=== PATIENT | male | born 1960 | race African-American/Black ===

== ENCOUNTER 2017-04-21 14:53 | Inpatient (IN) | payer OTHER ==
[2017-04-21 16:02] VITALS: BMI 27.0
[2017-04-21] MEDS ORDERED: MAGNESIUM CITRATE 300 ML BOTTLE PO PRN (17:24)
[2017-04-21] MEDS ORDERED: MAG HYDROX/AL HYDROX/SIMETH 30 ML UNIT-DOSE CUP PO PRN (17:24)
[2017-04-21] MEDS ORDERED: MENTHOL/PHENOL 1 EACH UD MM PRN (17:24)
[2017-04-21] MEDS ORDERED: MAGNESIUM HYDROX 2400MG/30ML ORAL SUSPENSION 30 ML CUP PO PRN (17:24)
[2017-04-21] MEDS ORDERED: guaiFENesin/D-METHORPHAN HB 10 ML UNIT-DOSE CUPS PO PRN (17:24)
[2017-04-21] MEDS ORDERED: LOPERAMIDE HCL 2 MG CAPSULE PO PRN (17:24)
[2017-04-21] MEDS ORDERED: P-EPHED 60MG/TRIPROLIDI 2.5MG TABLET PO PRN (17:24)
[2017-04-21] MEDS ORDERED: ACETAMINOPHEN 325 MG TABLET (FP) PO PRN (17:24)
[2017-04-21] MEDS ORDERED: IBUPROFEN 400 MG TABLET (FP) PO PRN (17:24)
--- NOTE | 2017-04-21 17:24 | HP ---
CIWA Score - CIWA Score Nausea/Vomitin-Mild Nausea/No Vomiting Muscle Tremors: 4-Moderate,w/Arms Extend Anxiety: 4-Mod. Anxious/Guarded Agitation: 4-Moderately Restless Paroxysmal Sweats: 1-Minimal Palms Moist Orientation: 0-Oriented Tacttile Disturbances: 0-None Auditory Disturbances: 0-None Visual Disturbances: 0-None Headache: 0-None Present CIWA-Ar Total Score: 14 Admission ROS BHS - HPI Chief Complaint: withdrawal sx Allergies/Adverse Reactions: Allergies Allergy/AdvReac Type Severity Reaction Status Date / Time No Known Allergies Allergy Verified 04/21/17 16:42 History of Present Illness: 56 years old male with long history of alcohol cocaine nicotine dependence, last detox "months ago"has hypertension diabetes ii and insomnia is admitted to detox Exam Limitations: No Limitations - Ebola screening Have you traveled outside of the country in the last 21 days: No Have you had contact with anyone from an Ebola affected area: No Have you been sick,other than usual withdrawal symptoms: No Do you have a fever: No - Review of Systems Constitutional: Changes in sleep, Weight Stable EENT: reports: No Symptoms Reported Respiratory: reports: No Symptoms reported Cardiac: reports: No Symptoms Reported GI: reports: Nausea, Poor Fluid Intake, Abdominal cramping : reports: No Symptoms Reported Musculoskeletal: reports: No Symptoms Reported Integumentary: reports: No Symptoms Reported Neuro: reports: Tremors Endocrine: reports: No Symptoms Reported Hematology: reports: No Symptoms Reported Psychiatric: reports: Judgement Intact, Orientated x3, Depressed Other Systems: Reviewed and Negative Patient History - Patient Medical History Hx Anemia: No Hx Asthma: No Hx Chronic Obstructive Pulmonary Disease (COPD): No Hx Cancer: No Hx Cardiac Disorders: No Hx Congestive Heart Failure: No Hx Hypertension: Yes Hx Hypercholesterolemia: No Hx Pacemaker: No HX Cerebrovascular Accident: No Hx Seizures: No Hx Dementia: No Hx Diabetes: Yes (IDDM) Hx Gastrointestinal Disorders: No Hx Liver Disease: No Hx Genitourinary Disorders: No Hx Sexually Transmitted Disorders: No Hx Renal Disease (ESRD): No Hx Thyroid Disease: No Hx Human Immunodeficiency Virus (HIV): No Hx Hepatitis C: No Hx Depression: Yes Hx Suicide Attempt: No Hx Bipolar Disorder: No Hx Schizophrenia: No - Patient Surgical History Past Surgical History: No Hx Neurologic Surgery: No Hx Cataract Extraction: No Hx Cardiac Surgery: No Hx Lung Surgery: No Hx Breast Surgery: No Hx Breast Biopsy: No Hx Abdominal Surgery: No Hx Appendectomy: No Hx Cholecystectomy: No Hx Genitourinary Surgery: No Hx Orthopedic Surgery: No - PPD History Previous Implant?: Yes Documented Results: Negative w/o proof Implanted On Prior R Admission?: No PPD to be Administered?: Yes - Smoking Cessation Smoking history: Current every day smoker Have you smoked in the past 12 months: Yes Aproximately how many cigarettes per day: 10 Hx Chewing Tobacco Use: No Initiated information on smoking cessation: Yes 'Breaking Loose' booklet given: 04/21/17 - Substance & Tx. History Hx Alcohol Use: Yes Hx Substance Use: Yes Substance Use Type: Alcohol, Cocaine Hx Substance Use Treatment: No - Substances Abused Crack Route: Smoking Frequency: 1-3 times last 30 days Amount used: $500 Age of first use: 27 Date of Last Use: 04/14/17 Alcohol-beer/vodka Route: Oral Frequency: Daily Amount used: 2-3 6 pks./1-2 pts. Age of first use: 17 Date of Last Use: 04/21/17 Family Disease History - Family Disease History Family History: Unremarkable Other Family History: patient refuses to discuss family medical history "yes, i have a mother and fahter." Admission Physical Exam S - Vital Signs Vital Signs: Vital Signs - 24 hr 04/21/17 15:57 Temperature 98.3 F Pulse Rate 101 H Respiratory 20 Rate Blood Pressure 148/97 - Physical General Appearance: Yes: Appropriately Dressed, Mild Distress, Alcohol on Breath , Tremorous, Irritable, Sweating, Anxious HEENTM: Yes: Hearing grossly Normal, Normal ENT Inspection, Normocephalic, Normal Voice Respiratory: Yes: Chest Non-Tender, Lungs Clear, Normal Breath Sounds, No Respiratory Distress, No Accessory Muscle Use Neck: Yes: Supple, Trachea in good position Breast: Yes: Breasts Symetrical Cardiology: Yes: Regular Rhythm, S1, S2, Tachycardia Abdominal: Yes: Normal Bowel Sounds, Non Tender, Soft Genitourinary: Yes: Within Normal Limits Back: Yes: Normal Inspection Musculoskeletal: Yes: full range of Motion, Gait Steady, Back pain, Muscle Pain Extremities: Yes: Normal Range of Motion, Non-Tender, Tremors Neurological: Yes: Fully Oriented, Alert, Motor Strength 5/5, Normal Response, Depressed Affect Integumentary: Yes: Warm Lymphatic: Yes: Within Normal Limits - Diagnostic (1) Alcohol dependence with uncomplicated withdrawal Current Visit: Yes Status: Acute (2) Cocaine dependence, uncomplicated Current Visit: Yes Status: Chronic (3) Hypertension Current Visit: Yes Status: Chronic Qualifiers: Hypertension type: essential hypertension Qualified Code(s): I10 - Essential (primary) hypertension (4) Diabetes mellitus, type II, insulin dependent Current Visit: Yes Status: Chronic (5) Nicotine dependence Current Visit: Yes Status: Acute Qualifiers: Nicotine product type: cigarettes Substance use status: in withdrawal Qualified Code(s): F17.213 - Nicotine dependence, cigarettes, with withdrawal (6) Anxiety and depression Current Visit: Yes Status: Suspected Cleared for Admission [facility] - Detox or Rehab [facility] Level of Care: Medically Managed Detox Regimen/Protocol: Librium [facility] Breath Alcohol Content Breath Alcohol Content: 0.048 Urine Drug Screen - Results Drug Screen Negative: No Urine Drug Screen Results: CASS-Cocaine, BZO-Benzodiazepines
[2017-04-21] MEDS ORDERED: NICOTINE 14 MG/24 HOURS TOPICAL PATCH TD PRN (17:28)
[2017-04-21] MEDS ORDERED: NICOTINE POLACRILEX 2 MG GUM BUC PRN (17:28)
[2017-04-21] MEDS ORDERED: amLODIPine BESYLATE 5 MG TABLET (FP) PO SCH (17:30)
[2017-04-21] MEDS: chlordiazePOXIDE HCL 25 MG CAPSULE PO PRN (19:54)
[2017-04-21] MEDS: THIAMINE HCL 100 MG TABLET (FP) PO SCH (22:13)
[2017-04-21] MEDS: chlordiazePOXIDE HCL 25 MG CAPSULE PO SCH (22:13)
[2017-04-21] MEDS: diphenhydrAMINE HCL 50 MG CAPSULE PO PRN (22:14)
[2017-04-21] MEDS: INSULIN SLIDING SCALE (NOVOLOG) 1 VIAL SQ SCH (22:15)
[2017-04-21 22:29] LABS: URINE APPEARANCE CLEAR; URINE BILIRUBIN NEGATIVE (NEGATIVE); URINE BLOOD 1+ (NEGATIVE); URINE COLOR LTYELLOW; URINE GLUCOSE (UA) 2+ (NEGATIVE); URINE KETONE NEGATIVE (NEGATIVE); URINE LEUK ESTERASE NEGATIVE (NEGATIVE); URINE NITRITE NEGATIVE (NEGATIVE); URINE PROTEIN NEGATIVE (NEGATIVE); URINE UROBILINOGEN NEGATIVE mg/dL (0.2-1.0)
[2017-04-21 22:55] LABS: CALCIUM OXALATE CRYSTALS FEW /hpf (NONE SEEN); URINE HYALINE CAST 1 /lpf; URINE MUCUS RARE; URINE RBC 1 /hpf (0-3); URINE WBC 2 /hpf (3-5)
[2017-04-22] MEDS: chlordiazePOXIDE HCL 25 MG CAPSULE PO SCH ×4 (05:16→22:12)
[2017-04-22] MEDS: INSULIN SLIDING SCALE (NOVOLOG) 1 VIAL SQ SCH ×4 (06:09→22:47)
[2017-04-22] MEDS: metFORMIN HCL 500 MG TABLET (FP) PO SCH ×2 (08:30→17:22)
[2017-04-22] MEDS: PRENATAL VITAMINS W/ FOLIC ACID TABLET (FP) PO SCH (09:10)
[2017-04-22] MEDS: amLODIPine BESYLATE 5 MG TABLET (FP) PO SCH (09:10)
[2017-04-22 09:47] LABS: MCHC 32.8 g/dl (32.0-35.9); MEAN CELL VOLUME 79.1 fl (80-96); MEAN PLT VOLUME 8.8 fl (7.5-11.1); PLATELET COUNT 252 K/MM3 (134-434); RDW 18.5 % (11.9-15.9); WHITE BLOOD COUNT 5.4 K/mm3 (4.0-10.0)
--- NOTE | 2017-04-22 09:52 | PN ---
[facility] CIWA - CIWA Score Nausea/Vomitin-No Nausea/No Vomiting Muscle Tremors: 4-Moderate,w/Arms Extend Anxiety: 4-Mod. Anxious/Guarded Agitation: 4-Moderately Restless Paroxysmal Sweats: 1-Minimal Palms Moist Orientation: 0-Oriented Tacttile Disturbances: 3-Moderate Itch/Numb/Burn Auditory Disturbances: 0-None Visual Disturbances: 0-None Headache: 0-None Present CIWA-Ar Total Score: 16 BHS Progress Note (SOAP) Subjective: ANXIETY, IRRITABILITY, AGITATIONS. Objective: 04/22/17 09:49 Vital Signs 04/22/17 04/22/17 04/22/17 03:33 06:15 09:19 Temperature 97.9 F 99.3 F Pulse Rate 88 93 H Respiratory 18 18 20 Rate Blood Pressure 144/95 149/93 Laboratory Last Values POC Glucometer 112 UNITS (()) 04/22/17 05:17 Urine Color Ltyellow 04/21/17 21:57 Urine Appearance Clear 04/21/17 21:57 Urine pH 5.0 (5.0-8.0) 04/21/17 21:57 Ur Specific [place] 1.020 (1.005-1.025) 04/21/17 21:57 Urine Protein Negative (NEGATIVE) 04/21/17 21:57 Urine Glucose (UA) 2+ (NEGATIVE) H 04/21/17 21:57 Urine Ketones Negative (NEGATIVE) 04/21/17 21:57 Urine Blood 1+ (NEGATIVE) H 04/21/17 21:57 Urine Nitrite Negative (NEGATIVE) 04/21/17 21:57 Urine Bilirubin Negative (NEGATIVE) 04/21/17 21:57 Urine Urobilinogen Negative mg/dL (0.2-1.0) 04/21/17 21:57 Ur Leukocyte Esterase Negative (NEGATIVE) 04/21/17 21:57 Urine RBC 1 /hpf (0-3) 04/21/17 21:57 Urine WBC 2 /hpf (3-5) 04/21/17 21:57 Ur Epithelial Cells Rare /hpf (FEW) 04/21/17 21:57 Calcium Oxalate Crystal Few /hpf (NONE SEEN) 04/21/17 21:57 Hyaline Casts 1 /lpf 04/21/17 21:57 Urine Mucus Rare 04/21/17 21:57 LABS RESULT PENDING Assessment: 04/22/17 09:52 WITHDRAWAL SX Plan: CONTINUE DETOX
--- NOTE | 2017-04-22 10:46 | EKG ---
Test Reason : Blood Pressure : / mmHG Vent. Rate : 092 BPM Atrial Rate : 092 BPM P-R Int : 150 ms QRS Dur : 088 ms QT Int : 378 ms P-R-T Axes : 053 -24 002 degrees QTc Int : 467 ms NORMAL SINUS RHYTHM VOLTAGE CRITERIA FOR LEFT VENTRICULAR HYPERTROPHY NONSPECIFIC ST ABNORMALITY ABNORMAL ECG NO PREVIOUS ECGS AVAILABLE Confirmed by JERMAINE AGARWAL MD ([id number]) on 04/22/2017 10:46:16 AM Referred By: Confirmed By:JERMAINE AGARWAL MD
--- NOTE | 2017-04-22 10:47 | EKG ---
Test Reason : Blood Pressure : / mmHG Vent. Rate : 090 BPM Atrial Rate : 090 BPM P-R Int : 158 ms QRS Dur : 086 ms QT Int : 388 ms P-R-T Axes : 052 -29 -16 degrees QTc Int : 474 ms NORMAL SINUS RHYTHM VOLTAGE CRITERIA FOR LEFT VENTRICULAR HYPERTROPHY ABNORMAL ECG WHEN COMPARED WITH ECG OF 21-APR-2017 19:34, NO SIGNIFICANT CHANGE WAS FOUND Confirmed by ANY GALLAGHER, JERMAINE ([id number]) on 04/22/2017 10:47:28 AM Referred By: Confirmed By:JERMAINE AGARWAL MD
[2017-04-22 11:06] LABS: ALBUMIN 3.9 g/dl (3.4-5.0); ALK PHOS 73 U/L (45-117); ANION GAP 11 (8-16); BILIRUBIN,TOTAL 0.6 mg/dL (0.2-1.0); CO2 24 mmol/L (21-32); CREATININE 1.1 mg/dL (0.7-1.3); GLUCOSE,RANDOM 103 mg/dL (74-106); SGOT/AST 25 U/L (15-37); SGPT/ALT 24 U/L (12-78); TOT PROT 7.2 g/dl (6.4-8.2)
--- NOTE | 2017-04-22 15:30 | CONSULT ---
[facility] Psychiatric Consult - Data Date of interview: 04/22/17 Admission source: [facility] Identifying data: First admission to [facility] for this 56 y/o AA male seeking detox treatment on for alcohol and cocaine dependence.Patient is single without children,domiciled,unemployed and supported on SSI benefits. Substance Abuse History: Discussed in this interview.Patient corroborated this [facility] report. Smoking Cessation. Smoking history: Current every day smoker. Have you smoked in the past 12 months: Yes. Aproximately how many cigarettes per day: 10. Hx Chewing Tobacco Use: No. Initiated information on smoking cessation: Yes. 'Breaking Loose' booklet given: 04/21/17. - Substance & Tx. History. Hx Alcohol Use: Yes. Hx Substance Use: Yes. Substance Use Type: Alcohol, Cocaine. Hx Substance Use Treatment: No. - Substances Abused. Crack. Route: Smoking. Frequency: 1-3 times last 30 days. Amount used: $500. Age of first use: 27. Date of Last Use: 04/14/17. Alcohol-beer/vodka. Route: Oral. Frequency: Daily. Amount used: 2-3 6 pks./1-2 pts. Age of first use: 17. Date of Last Use: 04/21/17 Medical History: Hypertension and diabetes mellitus. Psychiatric History: Patient denies. Physical/Sexual Abuse/Trauma History: No reported history of abuse. Additional Comment: Urine Drug Screen Results: CASS-Cocaine, BZO- Benzodiazepines.Noted. Mental Status Exam - Mental Status Exam Alert and Oriented to: Time, Place, Person Cognitive Function: Good Patient Appearance: Well Groomed Mood: Hopeful, Euthymic Affect: Appropriate, Normal Range Patient Behavior: Fatigued, Appropriate, Cooperative Speech Pattern: Clear, Appropriate Voice Loudness: Normal Thought Process: Intact, Goal Oriented Thought Disorder: Not Present Hallucinations: Denies Suicidal Ideation: Denies Homicidal Ideation: Denies Insight/Judgement: Poor Sleep: Poorly, Difficulty falling asleep Appetite: Good Muscle strength/Tone: Normal Gait/Station: Normal Psychiatric Findings - Problem List (Gravity 1, 2,3) (1) Alcohol dependence with uncomplicated withdrawal Current Visit: Yes Status: Acute (2) Cocaine dependence, uncomplicated Current Visit: Yes Status: Acute (3) Nicotine dependence Current Visit: Yes Status: Acute Qualifiers: Nicotine product type: cigarettes Substance use status: in withdrawal Qualified Code(s): F17.213 - Nicotine dependence, cigarettes, with withdrawal (4) Diabetes mellitus, type II, insulin dependent Current Visit: Yes Status: Chronic (5) Hypertension Current Visit: Yes Status: Chronic Qualifiers: Hypertension type: essential hypertension Qualified Code(s): I10 - Essential (primary) hypertension (6) Insomnia Current Visit: Yes Status: Acute - Initial Treatment Plan Initial Treatment Plan: Psychoeducation.Detoxification.Ambien 10 mg po hs prn.Patient is made aware of risk of parasomnias.He agrees with this careplan.Observation.
[2017-04-22] MEDS ORDERED: ZOLPIDEM TARTRATE 5 MG TABLET PO PRN (15:46)
[2017-04-22] MEDS: diphenhydrAMINE HCL 50 MG CAPSULE PO PRN (22:12)
[2017-04-22] MEDS: THIAMINE HCL 100 MG TABLET (FP) PO SCH (22:12)
[2017-04-23] MEDS: chlordiazePOXIDE HCL 25 MG CAPSULE PO SCH ×2 (06:07→10:23)
[2017-04-23] MEDS: metFORMIN HCL 500 MG TABLET (FP) PO SCH ×2 (06:24→17:37)
[2017-04-23] MEDS: INSULIN SLIDING SCALE (NOVOLOG) 1 VIAL SQ SCH ×3 (07:00→22:13)
--- NOTE | 2017-04-23 10:00 | PN ---
[facility] CIWA - CIWA Score Nausea/Vomitin-No Nausea/No Vomiting Muscle Tremors: 4-Moderate,w/Arms Extend Anxiety: 4-Mod. Anxious/Guarded Agitation: 4-Moderately Restless Paroxysmal Sweats: 1-Minimal Palms Moist Orientation: 0-Oriented Tacttile Disturbances: 3-Moderate Itch/Numb/Burn Auditory Disturbances: 0-None Visual Disturbances: 0-None Headache: 0-None Present CIWA-Ar Total Score: 16 BHS Progress Note (SOAP) Subjective: ANXIETY,SWEATS,TREMORS,FATIGUE. Objective: 04/23/17 10:00 Vital Signs Temperature 97.6 F 04/23/17 09:35 Pulse Rate 95 H 04/23/17 09:35 Respiratory Rate 18 04/23/17 09:35 Blood Pressure 143/95 04/23/17 09:35 O2 Sat by Pulse Oximetry (%) Laboratory Last Values WBC 5.4 K/mm3 (4.0-10.0) 04/22/17 07:00 RBC 5.04 M/mm3 (4.00-5.60) 04/22/17 07:00 Hgb 13.1 GM/dL (11.7-16.9) 04/22/17 07:00 Hct 39.9 % (35.4-49) 04/22/17 07:00 MCV 79.1 fl (80-96) L 04/22/17 07:00 MCH 26.0 pg (25.7-33.7) 04/22/17 07:00 MCHC 32.8 g/dl (32.0-35.9) 04/22/17 07:00 RDW 18.5 % (11.9-15.9) H 04/22/17 07:00 Plt Count 252 K/MM3 (134-434) 04/22/17 07:00 MPV 8.8 fl (7.5-11.1) 04/22/17 07:00 Sodium 140 mmol/L (136-145) 04/22/17 07:00 Potassium 4.1 mmol/L (3.5-5.1) 04/22/17 07:00 Chloride 105 mmol/L (98-107) 04/22/17 07:00 Carbon Dioxide 24 mmol/L (21-32) 04/22/17 07:00 Anion Gap 11 (8-16) 04/22/17 07:00 BUN 12 mg/dL (7-18) 04/22/17 07:00 Creatinine 1.1 mg/dL (0.7-1.3) 04/22/17 07:00 Creat Clearance w eGFR > 60 (>60) 04/22/17 07:00 POC Glucometer 143 UNITS (()) 04/23/17 06:09 Random Glucose 103 mg/dL (74-106) 04/22/17 07:00 Calcium 9.0 mg/dL (8.5-10.1) 04/22/17 07:00 Total Bilirubin 0.6 mg/dL (0.2-1.0) 04/22/17 07:00 AST 25 U/L (15-37) 04/22/17 07:00 ALT 24 U/L (12-78) 04/22/17 07:00 Alkaline Phosphatase 73 U/L (45-117) 04/22/17 07:00 Total Protein 7.2 g/dl (6.4-8.2) 04/22/17 07:00 Albumin 3.9 g/dl (3.4-5.0) 04/22/17 07:00 Urine Color Ltyellow 04/21/17 21:57 Urine Appearance Clear 04/21/17 21:57 Urine pH 5.0 (5.0-8.0) 04/21/17 21:57 Ur Specific [place] 1.020 (1.005-1.025) 04/21/17 21:57 Urine Protein Negative (NEGATIVE) 04/21/17 21:57 Urine Glucose (UA) 2+ (NEGATIVE) H 04/21/17 21:57 Urine Ketones Negative (NEGATIVE) 04/21/17 21:57 Urine Blood 1+ (NEGATIVE) H 04/21/17 21:57 Urine Nitrite Negative (NEGATIVE) 04/21/17 21:57 Urine Bilirubin Negative (NEGATIVE) 04/21/17 21:57 Urine Urobilinogen Negative mg/dL (0.2-1.0) 04/21/17 21:57 Ur Leukocyte Esterase Negative (NEGATIVE) 04/21/17 21:57 Urine RBC 1 /hpf (0-3) 04/21/17 21:57 Urine WBC 2 /hpf (3-5) 04/21/17 21:57 Ur Epithelial Cells Rare /hpf (FEW) 04/21/17 21:57 Calcium Oxalate Crystal Few /hpf (NONE SEEN) 04/21/17 21:57 Hyaline Casts 1 /lpf 04/21/17 21:57 Urine Mucus Rare 04/21/17 21:57 RPR Titer Nonreactive (NONREACTIVE) 04/22/17 07:00 Assessment: 04/23/17 10:01 WITHDRAWAL SX Plan: CONTINUE DETOX
[2017-04-23] MEDS: amLODIPine BESYLATE 5 MG TABLET (FP) PO SCH (10:23)
[2017-04-23] MEDS: PRENATAL VITAMINS W/ FOLIC ACID TABLET (FP) PO SCH (10:23)
[2017-04-23] MEDS: chlordiazePOXIDE HCL 25 MG CAPSULE PO PRN (14:20)
[2017-04-23] MEDS: chlordiazePOXIDE 5 MG CAPSULE PO SCH ×2 (17:37→22:11)
[2017-04-23] MEDS ORDERED: INSULIN (NOVOLOG) ASPART 100 UNITS/ML 10ML VIAL ONE (21:52)
[2017-04-23] MEDS ORDERED: amLODIPine BESYLATE 5 MG TABLET (FP) PO SCH (22:00)
[2017-04-23] MEDS: THIAMINE HCL 100 MG TABLET (FP) PO SCH (22:12)
[2017-04-23] MEDS ORDERED: chlordiazePOXIDE 5 MG CAPSULE PO SCH (23:00)
[2017-04-24] MEDS ORDERED: chlordiazePOXIDE HCL 10 MG CAPSULE PO SCH ×2 (05:00→23:00)
[2017-04-24 06:08] VITALS: BP 144/91; PULSE 96; TEMP 98
[2017-04-24] MEDS: metFORMIN HCL 500 MG TABLET (FP) PO SCH (07:12)
[2017-04-24] MEDS: INSULIN SLIDING SCALE (NOVOLOG) 1 VIAL SQ SCH (07:14)
--- NOTE | 2017-04-24 09:52 | DS ---
[facility] Detox Discharge Summary Admission Date: 04/21/17 Discharge Date: 04/24/17 - History Present History: Alcohol Dependence, Cocaine Dependence Additional Comments: DETOX COMPLETED, ALERT O X 3. NAD. PT STATES AND KNOWS HE HAS TO FOLLOW UP WITH PMD AT [facility] NEEDED. Pertinent Past History: DM HTN CHRONIC INSOMNIA - Physical Exam Results Vital Signs: Vital Signs Temperature 98.0 F 04/24/17 06:08 Pulse Rate 96 H 04/24/17 06:08 Respiratory Rate 18 04/24/17 06:08 Blood Pressure 144/91 04/24/17 06:08 O2 Sat by Pulse Oximetry (%) Pertinent Admission Physical Exam Findings: WITHDRAWAL SX Laboratory Last Values WBC 5.4 K/mm3 (4.0-10.0) 04/22/17 07:00 RBC 5.04 M/mm3 (4.00-5.60) 04/22/17 07:00 Hgb 13.1 GM/dL (11.7-16.9) 04/22/17 07:00 Hct 39.9 % (35.4-49) 04/22/17 07:00 MCV 79.1 fl (80-96) L 04/22/17 07:00 MCH 26.0 pg (25.7-33.7) 04/22/17 07:00 MCHC 32.8 g/dl (32.0-35.9) 04/22/17 07:00 RDW 18.5 % (11.9-15.9) H 04/22/17 07:00 Plt Count 252 K/MM3 (134-434) 04/22/17 07:00 MPV 8.8 fl (7.5-11.1) 04/22/17 07:00 Sodium 140 mmol/L (136-145) 04/22/17 07:00 Potassium 4.1 mmol/L (3.5-5.1) 04/22/17 07:00 Chloride 105 mmol/L (98-107) 04/22/17 07:00 Carbon Dioxide 24 mmol/L (21-32) 04/22/17 07:00 Anion Gap 11 (8-16) 04/22/17 07:00 BUN 12 mg/dL (7-18) 04/22/17 07:00 Creatinine 1.1 mg/dL (0.7-1.3) 04/22/17 07:00 Creat Clearance w eGFR > 60 (>60) 04/22/17 07:00 POC Glucometer 185 UNITS (()) 04/24/17 06:53 Random Glucose 103 mg/dL (74-106) 04/22/17 07:00 Calcium 9.0 mg/dL (8.5-10.1) 04/22/17 07:00 Total Bilirubin 0.6 mg/dL (0.2-1.0) 04/22/17 07:00 AST 25 U/L (15-37) 04/22/17 07:00 ALT 24 U/L (12-78) 04/22/17 07:00 Alkaline Phosphatase 73 U/L (45-117) 04/22/17 07:00 Total Protein 7.2 g/dl (6.4-8.2) 04/22/17 07:00 Albumin 3.9 g/dl (3.4-5.0) 04/22/17 07:00 Urine Color Ltyellow 04/21/17 21:57 Urine Appearance Clear 04/21/17 21:57 Urine pH 5.0 (5.0-8.0) 04/21/17 21:57 Ur Specific [place] 1.020 (1.005-1.025) 04/21/17 21:57 Urine Protein Negative (NEGATIVE) 04/21/17 21:57 Urine Glucose (UA) 2+ (NEGATIVE) H 04/21/17 21:57 Urine Ketones Negative (NEGATIVE) 04/21/17 21:57 Urine Blood 1+ (NEGATIVE) H 04/21/17 21:57 Urine Nitrite Negative (NEGATIVE) 04/21/17 21:57 Urine Bilirubin Negative (NEGATIVE) 04/21/17 21:57 Urine Urobilinogen Negative mg/dL (0.2-1.0) 04/21/17 21:57 Ur Leukocyte Esterase Negative (NEGATIVE) 04/21/17 21:57 Urine RBC 1 /hpf (0-3) 04/21/17 21:57 Urine WBC 2 /hpf (3-5) 04/21/17 21:57 Ur Epithelial Cells Rare /hpf (FEW) 04/21/17 21:57 Calcium Oxalate Crystal Few /hpf (NONE SEEN) 04/21/17 21:57 Hyaline Casts 1 /lpf 04/21/17 21:57 Urine Mucus Rare 04/21/17 21:57 RPR Titer Nonreactive (NONREACTIVE) 04/22/17 07:00 - Treatment Hospital Course: Detox Protocol Followed, Detoxed Safely, Responded well, Discharged Condition Good, Rehab Referral Accepted Patient has Accepted a Rehab Referral to: [facility] - Medication Discharge Medications: Ambulatory Orders Amlodipine Besylate [Norvasc -] 10 mg PO DAILY 04/21/17 Insulin Glargine,Hum.rec.anlog [Lantus Solostar PEN (NF)] 10 units SQ HS Metformin HCl [Glucophage -] 500 mg PO BID 04/21/17 - Diagnosis (1) Alcohol dependence with uncomplicated withdrawal Status: Acute (2) Nicotine dependence Status: Acute Qualifiers: Nicotine product type: cigarettes Substance use status: in withdrawal Qualified Code(s): F17.213 - Nicotine dependence, cigarettes, with withdrawal (3) Cocaine dependence, uncomplicated Status: Acute (4) Diabetes mellitus, type II, insulin dependent Status: Chronic (5) Hypertension Status: Chronic Qualifiers: Hypertension type: essential hypertension Qualified Code(s): I10 - Essential (primary) hypertension - AMA Did Patient Leave Against Medical Advice: No
== END 2017-04-24 09:32 | disposition home or self-care (01) | DRG 774 ==
LOC: YASAS 14:53 → Y3N 18:12
PROVIDERS: ADMIT Internal Medicine Addiction Medicine; ATTEND Internal Medicine Addiction Medicine
PROC: HZ2ZZZZ Detoxification Services for Substance Abuse Treatment (ICD-10-PCS; principal; 2017-04-21)
DX: F10.230 Alcohol dependence with withdrawal, uncomplicated (principal); F14.20 Cocaine dependence, uncomplicated; F17.210 Nicotine dependence, cigarettes, uncomplicated; F41.8 Other specified anxiety disorders; I10 Essential (primary) hypertension; E11.9 Type 2 diabetes mellitus without complications; Z79.4 Long term (current) use of insulin; G47.00 Insomnia, unspecified; R00.0 Tachycardia, unspecified
CPT/HCPCS: 36415; 80053; 81003; 81015; 85027; 86593; 93005; 93010